=== PATIENT | female | born 1995 | race Caucasian/White ===

== ENCOUNTER 2021-05-05 18:16 | Emergency (ER) | payer MEDICAID ==
[~2021-05-05] VITALS: Ht 160 cm; Wt 62.1 kg
--- NOTE | 2021-05-05 18:41 | NUR ---
25 years old female alert, oriented x4 walking to er c/o abdominal pain, blood in urine today denies nausea vomiting.
[2021-05-05] MEDS ORDERED: PHENAZOPYRIDINE HCL 200 MG TABLET ONE (18:50)
[2021-05-05] MEDS ORDERED: PHENAZOPYRIDINE HCL 200 MG TABLET PO ONE (19:00)
--- NOTE | 2021-05-05 19:05 | NUR ---
REC'D REPORT FROM JAIMIE AHMADI FOR SHIRA
--- NOTE | 2021-05-05 19:16 | NUR ---
CALLED LAB TO F/U ON URINE. REC'D AND RUNNING
--- NOTE | 2021-05-05 19:17 | NUR ---
report endorsed to nurse Cornelius all questions answered.
[2021-05-05 19:21] LABS: BILIRUBIN,URINE Negative (NEGATIVE); COLOR,URINE RED (YELLOW); LEUKOCYTE ESTERASE ,URINE Large (NEGATIVE); NITRITE, URINE Negative (NEGATIVE); PROTEIN,URINE >=300 mg/dl (NEGATIVE); UGLUCOSE Negative (NEGATIVE); UROBILINOGEN,URINE 0.2 EU/dL (0.2)
[2021-05-05 19:29] LABS: BACTERIA,URINE Few /HPF (None Seen); RBC,URINE 21-50 /HPF (0-2); SQUAMOUS EPITHELIAL CELL,UR 0-2 /HPF (None Seen); WBC,URINE 81-100 /HPF (0-3)
[2021-05-05] MEDS ORDERED: CEPH500C2 PO (19:35)
[2021-05-05] MEDS ORDERED: PHEN-705 PO (19:35)
--- NOTE | 2021-05-05 19:36 | NUR ---
Patient discharged to home in stable condition. Written and verbal after care instructions given. Patient verbalizes understanding of instruction. Pt ambulatory with a steady gait
[2021-05-05 19:41] VITALS: BP 105/68
== END 2021-05-05 19:36 | disposition home or self-care (01) ==
LOC: ER 18:23
DX: N39.0 Urinary tract infection, site not specified (principal)
CPT/HCPCS: 81001; 84703-TC; 87086-TC; 87186-TC